=== PATIENT | male | born 1995 | race Caucasian/White ===

== ENCOUNTER 2018-10-27 10:18 | Emergency (ER) | payer BC ==
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
== END 2018-10-27 11:33 | disposition home or self-care (01) ==
LOC: MW.ED 10:18
DX: S01.511A Laceration without foreign body of lip, initial encounter (principal); Z91.013 Allergy to seafood; Y04.2XXA Assault by strike against or bumped into by another person, initial encounter
CPT/HCPCS: 70450; 70450-26; 99284-25